=== PATIENT | female | born 1945 | race Caucasian/White ===

== ENCOUNTER → 2018-08-08 | Outpatient (CLI) | payer MEDICARE ==
--- NOTE | 2018-08-08 13:03 | MR ---
EXAMINATION TYPE: MR shoulder LT wo con DATE OF EXAM: 08/08/2018 COMPARISON: X-ray 08/01/2018 submitted from [facility] HISTORY: Left shoulder pain TECHNIQUE: Multiplanar, multisequence imaging of the left shoulder is performed without contrast. FINDINGS: There is hypertrophic change and arthropathy of the AC joint. There is mild mass effect upon the supr aspinatus tendon and muscle. There appears to be increased signal at the musculotendinous junction of the supraspinatus tendon elizabeth suring 2.7 mm. No through thickness tear. There is thinning along the distal margin of the supraspina tus tendon extending to the footplate and insertion compatible tendinopathy and partial tear. There i s no through thickness tear. There is a small amount of fluid in the subacromial bursa. Biceps tendon is normally situated the bicipital groove. Biceps anchor and intracapsular portion of t he tendon are intact. No sizable joint effusion of the glenohumeral joint. Bony labrum are intact. No marrow edema or contusion. Infraspinatus and subscapularis tendons are intact with no diagnostic evidence of tendinosis or tear. There is loss of the normal fat within the rotator interval with the questionable thickening of the c oracohumeral ligament. Additionally there appears to be edematous change at the insertion of the infe rior glenohumeral ligament. IMPRESSION: 1. Impingement secondary to AC joint arthropathy resulting in tendinosis of the musculotendinous junc tion and distal margin of the supraspinatus tendon. Thinning and partial bursal surface tear of the d istal 1.2 cm of the anterior fibers of the supraspinatus tendon. No through thickness tear. 2. There is fluid within the substance the acromial bursa correlate for bursitis. 3. There is loss of the normal fat within the rotator interval with thickening of the coracohumeral ligament. Additionally there appears to be edematous change at the insertion of the inferior glenohum eral ligament. Findings could be on the basis of a frozen shoulder, correlate clinically. Otherwise c onsider ligamentous strain.
== END ==
LOC: RADMRIMAIN 08:43
PROVIDERS: ATTEND Orthopaedic Surgery
DX: M25.512 Pain in left shoulder (principal); M12.9 Arthropathy, unspecified

== ENCOUNTER 2021-10-21 13:09 | Emergency (ER) | payer MEDICARE ==
[2021-10-21 13:14] VITALS: TEMP 98.2
[2021-10-21] MEDS ORDERED: SODIUM CHLORIDE 0.9% 500 ML 500 ML IV STA (13:31)
--- NOTE | 2021-10-21 13:34 | ED ---
Arrhythmia/Palpitations HPI - General Chief Complaint: Arrhythmia/Palpitations Stated Complaint: hypertension Time Seen by Provider: 10/21/21 13:25 Source: patient, RN notes reviewed, old records reviewed Mode of arrival: ambulatory Limitations: no limitations - History of Present Illness Initial Comments: This is a pleasant, well-appearing 76-year-old female that presents to the emergency room with family member complaining of worsening palpitations on and off for the past couple of days. Patient states that she does have a history of atrial fibrillation and is currently taking eliquis. She was diagnosed in September 2020 at [facility] for palpitations and TIA. At that time she had a heart catheterization, echocardiogram and carotid Dopplers done. She was seeing Dr. Lagnston at [facility]. She is transferring her care to Dr. Avalos in [place] and has an appointment first week of November. She states that she also noticed that her blood pressure has been elevated over the past couple of days. She denies any chest pain or shortness of breath, no leg swelling. No abdominal pain. No nausea or vomiting. MD Complaint: palpitations -: days(s) (2) Context: occurred during rest Arrhythmia History: atrial fibrillation, on anti-coagulants Associated Symptoms: denies other symptoms, other (hypertension) - Related Data Home Medications Medication Instructions Recorded Confirmed Apixaban [Eliquis] 5 mg PO BID 10/21/21 10/21/21 Atorvastatin Calcium [Lipitor] 40 mg PO HS 10/21/21 10/21/21 Cholecalciferol [Vitamin D3 (25 25 mcg PO BID 10/21/21 10/21/21 Mcg = 1000 Iu)] Digoxin 250 mcg PO DAILY 10/21/21 10/21/21 atenoloL [Tenormin] 100 mg PO DAILY 10/21/21 10/21/21 Allergies Allergy/AdvReac Type Severity Reaction Status Date / Time No Known Allergies Allergy Verified 10/21/21 14:40 Review of Systems ROS Statement: Those systems with pertinent positive or pertinent negative responses have been documented in the HPI. ROS Other: All systems not noted in ROS Statement are negative. Past Medical History Past Medical History: Atrial Fibrillation, Hypertension History of Any Multi-Drug Resistant Organisms: None Reported Past Surgical History: No Surgical Hx Reported Past Psychological History: No Psychological Hx Reported Smoking Status: Never smoker Past Alcohol Use History: Occasional Past Drug Use History: None Reported General Exam Limitations: no limitations General appearance: alert, in no apparent distress Head exam: Present: atraumatic, normocephalic Eye exam: Present: normal appearance. Absent: scleral icterus, conjunctival injection ENT exam: Present: mucous membranes moist Neck exam: Absent: tenderness, meningismus Respiratory exam: Present: normal lung sounds bilaterally. Absent: respiratory distress, accessory muscle use Cardiovascular Exam: Present: regular rate, normal rhythm GI/Abdominal exam: Present: soft. Absent: distended, tenderness Extremities exam: Present: normal inspection, normal capillary refill. Absent: tenderness, pedal edema Neurological exam: Present: alert, oriented X3 Psychiatric exam: Present: normal affect, normal mood Skin exam: Present: warm, dry, intact, normal color. Absent: cyanosis, diaphoretic, petechiae, pallor Course Vital Signs 10/21/21 10/21/21 13:11 15:55 Temperature 98.2 F Pulse Rate 73 59 L Respiratory 16 18 Rate Blood Pressure 201/88 141/76 O2 Sat by Pulse 98 95 Oximetry EKG Findings - EKG Results: EKG: sinus rhythm (Ventricular rate 66, ME interval 0.152, QRS 0.89, QTC 0.387) Medical Decision Making - Medical Decision Making Patient presents with palpitations and elevated blood pressure today. She states that she's been having palpitations over the past couple of days. She is on eliquis. Chest x-ray shows no acute cardiopulmonary disease. Heart mediastinum are unremarkable. Hemoglobin and hematocrit are stable no evidence of leukocytosis. Electrolytes are unremarkable. There is however an elevation in her total bilirubin at 2.4. Patient was made aware , no further evidence of liver dysfunction. I did notify the patient of this elevation and directed her to discuss this with her primary care doctor. EKG shows sinus rhythm with no ectopy. There is some ST depression noted. No previous EKG to compare. 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 fib or ectopy. She has had no symptoms while in the emergency room. Blood pressure has come down without any intervention. She states that it may have been elevated due to her anxiety about the palpitations. She was instructed to keep her appointment November 05 with her tutoring clinician return to the emergency room with any new or concerning symptoms. She is agreeable to this plan of care. Case discussed with Dr. Echevarria - Lab Data Result diagrams: 10/21/21 13:43 10/21/21 13:43 Lab Results 10/21/21 10/21/21 10/21/21 Range/Units 13:43 13:43 13:43 WBC 10.6 (3.8-10.6) k/uL RBC 4.71 (3.80-5.40) m/uL Hgb 14.5 (11.4-16.0) gm/dL Hct 44.1 (34.0-46.0) % MCV 93.7 (80.0-100.0) fL MCH 30.9 (25.0-35.0) pg MCHC 33.0 (31.0-37.0) g/dL RDW 12.2 (11.5-15.5) % Plt Count 311 (150-450) k/uL MPV 7.2 Neutrophils % 74 % Lymphocytes % 18 % Monocytes % 6 % Eosinophils % 0 % Basophils % 1 % Neutrophils # 7.9 H (1.3-7.7) k/uL Lymphocytes # 1.9 (1.0-4.8) k/uL Monocytes # 0.6 (0-1.0) k/uL Eosinophils # 0.0 (0-0.7) k/uL Basophils # 0.1 (0-0.2) k/uL PT 10.7 (9.0-12.0) sec INR 1.0 (<1.2) APTT 28.1 (22.0-30.0) sec Sodium 138 (137-145) mmol/L Potassium 4.3 (3.5-5.1) mmol/L Chloride 102 (98-107) mmol/L Carbon Dioxide 26 (22-30) mmol/L Anion Gap 10 mmol/L BUN 15 (7-17) mg/dL Creatinine 0.91 (0.52-1.04) mg/dL Est GFR (CKD-EPI)AfAm 72 (>60 ml/min/1.73 sqM) Est GFR (CKD-EPI)NonAf 62 (>60 ml/min/1.73 sqM) Glucose 115 H (74-99) mg/dL Calcium 10.0 (8.4-10.2) mg/dL Magnesium 2.0 (1.6-2.3) mg/dL Total Bilirubin 2.4 H (0.2-1.3) mg/dL AST 25 (14-36) U/L ALT 20 (4-34) U/L Alkaline Phosphatase 95 (38-126) U/L Troponin I (0.000-0.034) ng/mL Total Protein 8.3 H (6.3-8.2) g/dL Albumin 4.9 (3.5-5.0) g/dL 10/21/21 Range/Units 13:43 WBC (3.8-10.6) k/uL RBC (3.80-5.40) m/uL Hgb (11.4-16.0) gm/dL Hct (34.0-46.0) % MCV (80.0-100.0) fL MCH (25.0-35.0) pg MCHC (31.0-37.0) g/dL RDW (11.5-15.5) % Plt Count (150-450) k/uL MPV Neutrophils % % Lymphocytes % % Monocytes % % Eosinophils % % Basophils % % Neutrophils # (1.3-7.7) k/uL Lymphocytes # (1.0-4.8) k/uL Monocytes # (0-1.0) k/uL Eosinophils # (0-0.7) k/uL Basophils # (0-0.2) k/uL PT (9.0-12.0) sec INR (<1.2) APTT (22.0-30.0) sec Sodium (137-145) mmol/L Potassium (3.5-5.1) mmol/L Chloride (98-107) mmol/L Carbon Dioxide (22-30) mmol/L Anion Gap mmol/L BUN (7-17) mg/dL Creatinine (0.52-1.04) mg/dL Est GFR (CKD-EPI)AfAm (>60 ml/min/1.73 sqM) Est GFR (CKD-EPI)NonAf (>60 ml/min/1.73 sqM) Glucose (74-99) mg/dL Calcium (8.4-10.2) mg/dL Magnesium (1.6-2.3) mg/dL Total Bilirubin (0.2-1.3) mg/dL AST (14-36) U/L ALT (4-34) U/L Alkaline Phosphatase (38-126) U/L Troponin I <0.012 (0.000-0.034) ng/mL Total Protein (6.3-8.2) g/dL Albumin (3.5-5.0) g/dL Disposition Clinical Impression: Palpitations Disposition: HOME SELF-CARE Condition: Good Instructions (If sedation given, give patient instructions): Heart Palpitations (ED) Additional Instructions: Your EKG does not show any evidence of atrial fibrillation today. Your labs show no areas of concern. There is some elevation in your total bilirubin at 2.4. Please discuss this with your primary care doctor. Return to the emergency room with any new or concerning symptoms including difficulty breathing, chest pain or persistent palpitations. Is patient prescribed a controlled substance at d/c from ED?: No Referrals: Sacha Abdalla MD [Primary Care Provider] - 1-2 days Time of Disposition: 14:56
[2021-10-21 13:50] LABS: Basophils # (A) 0.1 k/uL (0-0.2); Basophils % (A) 1 %; Eosinophils % (A) 0 %; HCT 44.1 % (34.0-46.0); HGB 14.5 gm/dL (11.4-16.0); Lymphocytes # (A) 1.9 k/uL (1.0-4.8); Lymphocytes % (A) 18 %; MCH 30.9 pg (25.0-35.0); MCV 93.7 fL (80.0-100.0); Mean Platelet Volume 7.2; Monocytes # (A) 0.6 k/uL (0-1.0); Monocytes % (A) 6 %; Neutrophils # (A) 7.9 k/uL (1.3-7.7); Neutrophils % (A) 74 %; Platelet Count 311 k/uL (150-450); RBC 4.71 m/uL (3.80-5.40); RDW 12.2 % (11.5-15.5); WBC 10.6 k/uL (3.8-10.6)
[2021-10-21 13:58] LABS: Partial Thromboplastin Time 28.1 sec (22.0-30.0); Prothrombin Time 10.7 sec (9.0-12.0)
[2021-10-21 14:03] LABS: Albumin 4.9 g/dL (3.5-5.0); Potassium 4.3 mmol/L (3.5-5.1); Total Bilirubin 2.4 mg/dL (0.2-1.3); Total Protein 8.3 g/dL (6.3-8.2)
--- NOTE | 2021-10-21 14:14 | XR ---
EXAMINATION TYPE: XR chest 2V DATE OF EXAM: 10/21/2021 2:07 PM COMPARISON: None TECHNIQUE: XR chest 2V Frontal and lateral views of the chest. CLINICAL INDICATION:Female, 76 years old with history of dysrhythmia; FINDINGS: Lungs/Pleura: There is no evidence of pleural effusion, focal consolidation, or pneumothorax. Pulmonary vascularity: Unremarkable. Heart/mediastinum: Cardiomediastinal silhouette is unremarkable. Musculoskeletal: No acute osseous pathology. IMPRESSION: No acute cardiopulmonary disease/process.
[2021-10-21 15:56] VITALS: BP 141/76; PULSE 59; RESP 18
== END 2021-10-21 15:38 | disposition home or self-care (01) ==
LOC: EC 13:09
DX: R00.2 Palpitations (principal); I10 Essential (primary) hypertension; I48.91 Unspecified atrial fibrillation; Z79.01 Long term (current) use of anticoagulants; Z79.899 Other long term (current) drug therapy
CPT/HCPCS: 36415; 71046; 80053; 83735; 84484; 85025; 85610; 85730; 93005; 99285